=== PATIENT | female | born 1950 | race Asian ===

== ENCOUNTER 2018-10-12 11:26 | Day surgery (SDC) | payer MEDICARE, MEDICAID ==
[~2018-10-12] VITALS: Ht 149.9 cm; Wt 73.1 kg
[2018-10-12] VITALS (9 sets, daily range): BP systolic 102–176; BP diastolic 44–84; PULSE 60–93; RESP 12–18; Ht 149.9 cm; Wt 73.1 kg
[~2018-10-12 11:26] MED LIST: CEFAZOLIN 2 GM/50 ML (PMX) 50 ML IVPB ONE; SOD CHLORIDE 0.9% 1,000 ML IV SCH
[2018-10-12] MEDS ORDERED: LOSA1TAB22 ORAL (12:00)
[2018-10-12] MEDS ORDERED: BUPIVACAINE 0.25% (MPF) 30 ML INJ ONE (12:36)
--- NOTE | 2018-10-12 12:51 | PREAC ---
Date/Time of Note Date/Time of Note DATE: 10/12/18 TIME: 12:50 Anesthesia Eval and Record Evaluation Time Pre-Procedure Interview DATE: 10/12/18 TIME: 12:50 Age 68 Sex female NPO: 8 hrs Preoperative diagnosis Rt axillary mass Planned procedure Excision of rt axillary mass Past Medical History Past Medical History: Includes Cardio: HTN, Dyslipidemia GI: Morbid obesity Surgery & Anesthesia Issues No known issue Meds Anticoagulation: No Beta Caitie within 24 hr: No Reason Beta Caitie not given: Pt. not on B-Caitie Reported Medications Losartan-Hydrochlorothiazide (Losartan-HCTZ) 50-12.5 Mg Tab, 1 TAB ORAL QAM 10/12/18 Current Medications Sodium Chloride 1,000 ml @ 75 mls/hr [id number] IV Last administered on 10/12/18at 12:27; Admin Dose 75 MLS/HR; Start 10/12/18 at 08:00; Stop 10/12/18 at 21:19 Meds reviewed: Yes Allergies Coded Allergies: No Known Drug Allergies (Unverified Allergy, Unknown, 10/11/18) Allergies Reviewed: Yes Labs/Studies Labs Reviewed: Reviewed by anesthesiologist test: N/A Studies: ECG Pre-procedure Exam Last vitals Vital Signs Date Temp Pulse Resp B/P (MAP) Pulse Ox O2 O2 Flow FiO2 Time Delivery Rate 10/12/18 98.0 93 16 176/84 98 Room Air 12:30 (114) Airway: Adequate mouth opening, Adequate thyromental dist Mallampati: Mallampati II Teeth: Normal Lung: Normal Heart: Normal ASA Physical Status ASA physical status: 3 Emergency: None Planned Anesthetic General/MAC: LMA Planned Pain Management Parenteral pain med Pre-operative Attestations Prior to commencing anesthesia and surgery, the patient was re-evaluated, there was verification of: *The patient's identity *The results of appropriate recent lab work and preoperative vital signs *The above evaluation not changing prior to induction *Anesthetic plan, risk benefits, alternative and complications discussed with patient/family; questions answered; patient/family understands, accepts and wishes to proceed. NICOLE SUMMERS MD Oct 12, 2018 12:51
[2018-10-12] MEDS ORDERED: MIDAZOLAM 1 MG/ML 2 ML INJ ONE (12:58)
[2018-10-12] MEDS ORDERED: CEFAZOLIN 1 GM INJ ONE (13:24)
[2018-10-12] MEDS ORDERED: ETOMIDATE 20 MG INJ ONE (13:24)
[2018-10-12] MEDS ORDERED: ONDANSETRON 4 MG INJ ONE (13:24)
[2018-10-12] MEDS ORDERED: LIDOCAINE 2% (SDV) 5 ML INJ ONE (13:24)
[2018-10-12] MEDS ORDERED: HYDROCODONE/APAP (5/325) TAB PO ONE (13:30)
--- NOTE | 2018-10-12 13:31 | OPR ---
Date/Time of Note Date/Time of Note DATE: 10/12/18 TIME: 13:29 Operative Report Procedure Date: Oct 12, 2018 Preoperative Diagnosis right axillary mass Postoperative Diagnosis same Operation/Procedure Performed 1. excision of right axillary mass 5 cm mass 5 cm incision 2. localized adjacent tissue transfer with the use of skin flaps 10 sq cm defect 3. therapeutic injection of subcutaneous local anesthesia Surgeon see signature line Decorating Machine Tender none Anesthesia Type: general Estimated Blood Loss: 0 - 10 ml's Transfusion none Specimen right axillary mass Grafts/Implants none Complications none Pt Condition Post Procedure: stable Indications This is a 5-year-old female with a right axillary mass. She requests surgical excision of the mass. Risks alternatives benefits and personal were discussed the patient. Patient expressed understanding and consents to the operation. Procedure Description Patient is taken to the OR and prepped and draped in usual sterile fashion. Surgical time was performed. IV antibiotics given. Elliptical incision was made with a 15 blade over the right axillary mass. Dissection with cautery skin of the mass and the mass was circumferentially excised. Good hemostasis established. Due to tissue defect localized adjacent to his transfer with these of skin flaps was performed. Multilayer closed with interrupted 3-0 Vicryl and skin saniya. Therapeutic subcutaneous local anesthesia was injected at the incision site. Dry dressings were applied. Giacomo NEWMAN Oct 12, 2018 13:31
--- NOTE | 2018-10-12 13:41 | PAC ---
Date/Time of Note Date/Time of Note DATE: 10/12/18 TIME: 13:40 Post-Anesthesia Notes Post-Anesthesia Note Last documented vital signs Vital Signs Date Temp Pulse Resp B/P (MAP) Pulse Ox O2 O2 Flow FiO2 Time Delivery Rate 10/12/18 98.0 93 16 176/84 98 Room Air 12:30 (114) Activity: WNL Respiratory function: WNL Cardiovascular function: WNL Mental status: Baseline Pain reasonably controlled: Yes Hydration appropriate: Yes Nausea/Vomiting absent: Yes Comments BP:112/56, P:78, Spo2:100%, T:98,8 NICOLE SUMMERS MD Oct 12, 2018 13:41
[2018-10-12] MEDS ORDERED: METOCLOPRAMIDE 10 MG INJ IV PRN (14:00)
[2018-10-12] MEDS ORDERED: ONDANSETRON 4 MG INJ IV PRN (14:00)
[2018-10-12] MEDS ORDERED: OXYCODONE/ACETAMINOPHEN (5/325) TAB PO PRN (14:00)
[2018-10-12] MEDS ORDERED: LABETALOL HCL 20MG INJ IV PRN (14:00)
[2018-10-12] MEDS ORDERED: DIPHENHYDRAMINE 50 MG INJ IV PRN (14:00)
[2018-10-12] MEDS ORDERED: MEPERIDINE 25 MG INJ IV PRN (14:00)
[2018-10-12] MEDS ORDERED: FENTAnyl 50 MCG/ML VIAL IV PRN (14:00)
== END 2018-10-12 15:25 | disposition home or self-care (01) ==
LOC: SDS 11:26
PROVIDERS: ATTEND Surgery
DX: L72.0 Epidermal cyst (principal); I10 Essential (primary) hypertension; E78.5 Hyperlipidemia, unspecified
CPT/HCPCS: 14020; 88307; J0690; J2250; J2405; J3010